=== PATIENT | female | born 1940 | race Caucasian/White ===

== ENCOUNTER 2019-08-22 17:40 | Observation (INO) | payer MEDICARE ==
[~2019-08-22] VITALS: Ht 157.5 cm; Wt 92.5 kg
[2019-08-22] MEDS ORDERED: FISH1CAP PO (18:08)
[2019-08-22] MEDS ORDERED: multivitamin (18:08)
[2019-08-22] MEDS ORDERED: AMLO10TA8 PO (18:08)
[2019-08-22] MEDS ORDERED: BUPR150T13 PO (18:08)
[2019-08-22] MEDS ORDERED: ASPI-515 PO (18:08)
[2019-08-22] MEDS ORDERED: PROP10TA16 PO (18:08)
[2019-08-22] MEDS ORDERED: METF10007 PO (18:08)
[2019-08-22] MEDS ORDERED: VITA400C43 PO (18:08)
[2019-08-22] MEDS ORDERED: OMEP-110 PO (18:08)
[2019-08-22] MEDS ORDERED: LOSA1TAB22 PO (18:08)
--- NOTE | 2019-08-22 18:21 | NUR ---
BREAK RN: DR [id number] AT BEDSIDE, PT ASSESSMENT, POC DISCUSSED AND QUESTIONS ANSWERED. ORDERS REC'D.
[2019-08-22] MEDS ORDERED: MECLIZINE CHEWABLE 25 MG TAB ONE (18:29)
[2019-08-22] MEDS ORDERED: MECLIZINE CHEWABLE 25 MG TAB PO ONE (18:30)
--- NOTE | 2019-08-22 18:39 | NUR ---
BREAK RN: PT MED NOTED. CALL LIGHT W/I REACH.
[2019-08-22 18:57] LABS: BASOPHILS # (AUTO) 0.05 x10^3/uL (0-0.1); BASOPHILS % (AUTO) 1 % (0-1); EOSINOPHILS # (AUTO) 0.16 x10^3/uL (0-0.4); EOSINOPHILS % (AUTO) 3 % (1-7); LYMPHOCYTES # (AUTO) 1.78 x10^3/uL (1-3.4); LYMPHOCYTES % (AUTO) 34 % (22-44); MD NO; MEAN CORPUSCULAR HEMOGLOBIN 30.6 pg (27.0-34.8); MEAN CORPUSCULAR HGB CONC 33.4 g/dL (32.4-35.8); MEAN CORPUSCULAR VOLUME 91.5 fL (80-100); MEAN PLATELET VOLUME 9.8 fL (7.4-10.4); MONOCYTES # (AUTO) 0.53 x10^3/uL (0.2-0.8); MONOCYTES % (AUTO) 10 % (2-9); NEUTROPHILS # (AUTO) 2.76 x10^3/uL (1.8-6.8); NEUTROPHILS % (AUTO) 52 % (42-75); PLATELET COUNT 152 x10^3/uL (130-400); RED BLOOD COUNT 4.47 x10^6/uL (3.82-5.3); RED CELL DISTRIBUTION WIDTH 13.9 % (9.6-15.2)
[2019-08-22 19:02] LABS: ALANINE AMINOTRANSFERASE 20 U/L (12-78); ALBUMIN 3.5 g/dL (3.4-5.0); ANION GAP 8 mmol/L (5-15); CALCIUM 9.3 mg/dL (8.5-10.1); CHLORIDE 105 mmol/L (98-107); CREATININE 1.31 mg/dL (0.55-1.02)
[2019-08-22 19:06] LABS: ALKALINE PHOSPHATASE 127 U/L (45-117); BILIRUBIN,TOTAL 0.5 mg/dL (0.2-1.0); TOTAL PROTEIN 7.6 g/dL (6.4-8.2); TROPONIN I < 0.015 ng/mL (0.000-0.045)
[2019-08-22 19:10] LABS: MICROSCOPIC AUTO
--- NOTE | 2019-08-22 19:56 | NUR ---
SPOKE WITH PT AND SHE STATED THAT SHE FEELS BETTER AND READY TO GO HOME. VS STABLE AND PT NOT IN ANY DISTRESS AT THIS TIME.
--- NOTE | 2019-08-22 20:18 | NUR ---
Ambulated Pt and Pt states that she felt dizzy sitting up, standing up, and spontaneouly during ambulation. Informed MD
--- NOTE | 2019-08-22 20:33 | NUR ---
MD AT BEDSIDE AND SPOKE TO PT ABOUT STAYING OVERNIGHT TO BE MONITERED FOR HER DIZZINESS. PT REFUSED AND STATED HER DAUGHTER IS GOING TO WATCH HER AT HOME.
--- NOTE | 2019-08-22 20:52 | NUR ---
PT SPOKE TO HER DAUGHTER AND SAID THAT SHE WOULD LIKE TO STAY TO BE OBSERVED OVERNIGHT. INFORMED MD.
[2019-08-22] MEDS ORDERED: CEFTRIAXONE PMX 1GM/50ML 50 ML IVPB ONE (21:00)
[2019-08-22] MEDS ORDERED: CEFTRIAXONE PMX 1GM/50ML 50 ML ONE (21:27)
[2019-08-22] MEDS ORDERED: ACETAMINOPHEN 325 MG TABLET PO PRN (21:30)
[2019-08-22] MEDS ORDERED: ONDANSETRON 2MG/ML, 2ML IVPush PRN (21:30)
[2019-08-22] MEDS ORDERED: hydrALAzine 20 MG/ML, 1ML IVPush PRN (21:30)
[2019-08-22] MEDS ORDERED: SODIUM CHLORIDE FLUSH 10ML SYR IVF PRN (21:30)
--- NOTE | 2019-08-22 21:39 | NUR ---
Report given to Candis.
[2019-08-22] MEDS ORDERED: ASPIRIN 325 MG TABLET EC PO ONE (22:00)
[2019-08-22] MEDS ORDERED: MECLIZINE CHEWABLE 25 MG TAB PO PRN (22:00)
[2019-08-22 22:10] VITALS: BP 139/68
[2019-08-22] MEDS: SODIUM CHLORIDE 0.9% 1,000 ML IV SCH (22:41)
[2019-08-23 00:24] VITALS: BP 140/63
[2019-08-23] MEDS ORDERED: VITA400C43 PO (03:12)
[2019-08-23 06:50] LABS: BASOPHILS # (AUTO) 0.02 x10^3/uL (0-0.1); BASOPHILS % (AUTO) 1 % (0-1); EOSINOPHILS # (AUTO) 0.11 x10^3/uL (0-0.4); EOSINOPHILS % (AUTO) 3 % (1-7); LYMPHOCYTES # (AUTO) 1.44 x10^3/uL (1-3.4); LYMPHOCYTES % (AUTO) 36 % (22-44); MD NO; MEAN CORPUSCULAR HEMOGLOBIN 30.4 pg (27.0-34.8); MEAN CORPUSCULAR HGB CONC 33.1 g/dL (32.4-35.8); MEAN CORPUSCULAR VOLUME 92.1 fL (80-100); MEAN PLATELET VOLUME 10.4 fL (7.4-10.4); MONOCYTES # (AUTO) 0.38 x10^3/uL (0.2-0.8); MONOCYTES % (AUTO) 10 % (2-9); NEUTROPHILS # (AUTO) 2.01 x10^3/uL (1.8-6.8); NEUTROPHILS % (AUTO) 51 % (42-75); PLATELET COUNT 117 x10^3/uL (130-400); RED BLOOD COUNT 4.23 x10^6/uL (3.82-5.3); RED CELL DISTRIBUTION WIDTH 13.8 % (9.6-15.2)
[2019-08-23 06:52] LABS: ANION GAP 8 mmol/L (5-15); CALCIUM 9.4 mg/dL (8.5-10.1); CHLORIDE 109 mmol/L (98-107)
[2019-08-23 07:11] VITALS: BP 151/70
[2019-08-23] MEDS: INSULIN LISPRO 100 UNITS/ML, PEN SQ-INSULIN SCH ×4 (07:28→20:44)
[2019-08-23] MEDS: CEFTRIAXONE PMX 1GM/50ML 50 ML IV SCH (08:48)
[2019-08-23] MEDS: SODIUM CHLORIDE 0.9% 1,000 ML IV SCH ×2 (08:49→20:44)
[2019-08-23 12:14] VITALS: BP 159/66
[2019-08-23 12:57] VITALS: BP 134/38
[2019-08-23 19:08] VITALS: BP 147/58
[2019-08-23] MEDS: BUPROPION SR 150 MG TABLET PO SCH (20:44)
[2019-08-23] MEDS: OMEPRAZOLE 20 MG CAPSULE.DR PO SCH (20:44)
[2019-08-24 01:47] VITALS: BP 157/70
[2019-08-24] MEDS: SODIUM CHLORIDE 0.9% 1,000 ML IV SCH ×2 (06:19→16:44)
[2019-08-24 06:58] LABS: BASOPHILS # (AUTO) 0.03 x10^3/uL (0-0.1); BASOPHILS % (AUTO) 1 % (0-1); EOSINOPHILS # (AUTO) 0.13 x10^3/uL (0-0.4); EOSINOPHILS % (AUTO) 3 % (1-7); LYMPHOCYTES # (AUTO) 1.54 x10^3/uL (1-3.4); LYMPHOCYTES % (AUTO) 35 % (22-44); MD NO; MEAN CORPUSCULAR HEMOGLOBIN 30.8 pg (27.0-34.8); MEAN CORPUSCULAR HGB CONC 33.6 g/dL (32.4-35.8); MEAN CORPUSCULAR VOLUME 91.7 fL (80-100); MEAN PLATELET VOLUME 9.7 fL (7.4-10.4); MONOCYTES # (AUTO) 0.39 x10^3/uL (0.2-0.8); MONOCYTES % (AUTO) 9 % (2-9); NEUTROPHILS % (AUTO) 52 % (42-75); PLATELET COUNT 138 x10^3/uL (130-400); RED BLOOD COUNT 4.39 x10^6/uL (3.82-5.3)
[2019-08-24] MEDS: INSULIN LISPRO 100 UNITS/ML, PEN SQ-INSULIN SCH ×4 (07:00→20:22)
[2019-08-24 07:13] LABS: CHLORIDE 111 mmol/L (98-107)
[2019-08-24 07:18] LABS: ANION GAP 6 mmol/L (5-15); CALCIUM 9.3 mg/dL (8.5-10.1); CREATININE 1.13 mg/dL (0.55-1.02)
[2019-08-24 08:02] VITALS: BP 169/67
[2019-08-24] MEDS: CEFTRIAXONE PMX 1GM/50ML 50 ML IV SCH (08:03)
[2019-08-24] MEDS: BUPROPION SR 150 MG TABLET PO SCH ×2 (08:03→20:22)
[2019-08-24] MEDS: ASPIRIN 81 MG TABLET CHEW PO SCH (08:04)
[2019-08-24] MEDS: AMLODIPINE 10 MG TAB PO SCH (08:04)
[2019-08-24] MEDS: OMEPRAZOLE 20 MG CAPSULE.DR PO SCH ×2 (08:04→20:22)
[2019-08-24] MEDS: PROPRANOLOL 10 MG TABLET PO SCH (08:04)
[2019-08-24 13:09] VITALS: BP 171/74
[2019-08-24 18:15] VITALS: BP 144/57
[2019-08-24 21:29] VITALS: BP 162/82
[2019-08-25 00:45] VITALS: BP 166/79
[2019-08-25] MEDS: SODIUM CHLORIDE 0.9% 1,000 ML IV SCH (02:00)
[2019-08-25 05:10] LABS: BASOPHILS # (AUTO) 0.02 x10^3/uL (0-0.1); BASOPHILS % (AUTO) 0 % (0-1); EOSINOPHILS # (AUTO) 0.15 x10^3/uL (0-0.4); EOSINOPHILS % (AUTO) 4 % (1-7); LYMPHOCYTES # (AUTO) 1.32 x10^3/uL (1-3.4); LYMPHOCYTES % (AUTO) 33 % (22-44); MD NO; MEAN CORPUSCULAR HGB CONC 33.7 g/dL (32.4-35.8); MEAN CORPUSCULAR VOLUME 91.9 fL (80-100); MONOCYTES # (AUTO) 0.38 x10^3/uL (0.2-0.8); MONOCYTES % (AUTO) 10 % (2-9); NEUTROPHILS # (AUTO) 2.09 x10^3/uL (1.8-6.8); NEUTROPHILS % (AUTO) 53 % (42-75); PLATELET COUNT 123 x10^3/uL (130-400); RED BLOOD COUNT 4.13 x10^6/uL (3.82-5.3); RED CELL DISTRIBUTION WIDTH 13.7 % (9.6-15.2)
[2019-08-25 05:20] LABS: ANION GAP 7 mmol/L (5-15); CALCIUM 8.7 mg/dL (8.5-10.1); CHLORIDE 112 mmol/L (98-107)
[2019-08-25 05:21] LABS: CREATININE 0.91 mg/dL (0.55-1.02)
[2019-08-25] MEDS: INSULIN LISPRO 100 UNITS/ML, PEN SQ-INSULIN SCH ×2 (07:00→11:00)
[2019-08-25 07:11] VITALS: BP 162/72
[2019-08-25] MEDS ORDERED: LORazepam 1MG TABLET PO PRN (08:30)
[2019-08-25] MEDS ORDERED: HYDROCHLOROTHIAZIDE 25 MG TABLET PO SCH (09:00)
[2019-08-25] MEDS ORDERED: LOSARTAN 100 MG TAB PO SCH ×2 (09:00)
[2019-08-25] MEDS: CEFTRIAXONE PMX 1GM/50ML 50 ML IV SCH (09:33)
[2019-08-25] MEDS: AMLODIPINE 10 MG TAB PO SCH (09:34)
[2019-08-25] MEDS: PROPRANOLOL 10 MG TABLET PO SCH (09:34)
[2019-08-25] MEDS: OMEPRAZOLE 20 MG CAPSULE.DR PO SCH (09:34)
[2019-08-25] MEDS: BUPROPION SR 150 MG TABLET PO SCH (09:34)
[2019-08-25] MEDS: ASPIRIN 81 MG TABLET CHEW PO SCH (09:34)
[2019-08-25 12:51] VITALS: BP 164/88
== END 2019-08-25 15:15 | disposition home or self-care (01) ==
LOC: ED 18:46 → EDIP 21:33 → INTOOBSV 21:33 → 4NE 21:54 → 4EST 08-24 17:48 → 4NE 08-24 17:49 → 4EST 08-24 18:05 → 4NE 08-24 18:07 → 4EST 08-24 18:37
PROVIDERS: ADMIT Internal Medicine; ATTEND Family Medicine
DX: Z03.818 Encounter for observation for suspected exposure to other biological agents ruled out (principal); R42 Dizziness and giddiness; N39.0 Urinary tract infection, site not specified; B95.4 Other streptococcus as the cause of diseases classified elsewhere; K75.81 Nonalcoholic steatohepatitis (NASH); I10 Essential (primary) hypertension; K74.60 Unspecified cirrhosis of liver; R05 Cough; Z79.899 Other long term (current) drug therapy; E11.9 Type 2 diabetes mellitus without complications; Z79.82 Long term (current) use of aspirin
CPT/HCPCS: 36415; 70450; 71045; 80048; 80053; 81001; 82962; 83605; 84484; 85025; 87040; 87077; 87086; 87186; 93005; 96361; 96365; 96366; 96375; 97162; 97530; 99285; G0378; J0360; J0696; J1815; J7030; U0001